=== PATIENT | female | born 1975 | race Caucasian/White ===

== ENCOUNTER → 2020-04-30 10:47 | Outpatient (BNVA) | payer MEDICAID, SELFPAY | PROVIDERS: Visit Provider Family Medicine | DX: N92.6 Irregular menstruation, unspecified (principal); I10 Essential (primary) hypertension; Z90.5 Acquired absence of kidney | CPT/HCPCS: 80053; 80061; 82670; 83001; 84443; 85025 ==

== ENCOUNTER 2020-05-24 19:02 | Outpatient (CLI) | payer MEDICAID, SELFPAY ==
[2020-05-24 19:19] LABS: Basophils # 0.1 10^3/uL (0.0-0.1); Eosinophils # 0.2 10^3/uL (0.0-0.8); Eosinophils % 1.6 %; Hematocrit 41.2 % (37.0-47.0); Hemoglobin 13.6 g/dL (11.5-15.3); Lymphocytes # 2.7 10^3/uL (0.8-4.8); Lymphocytes % 28.7 %; Mean Corpuscular Hemoglobin 31.5 pg (28.0-34.0); Mean Corpuscular Volume 95.4 fL (81-99); Mean Platelet Volume 10.7 fL (7.4-10.4); Monocytes # 0.8 10^3/uL (0.2-0.9); Monocytes % 8.7 %; Neutrophils # 5.59 10^3/uL (1.8-7.7); Neutrophils % 59.7 %; Nucleated Red Blood Cells % 0 %; Platelet Count 247 10^3/cmm (130-400); Red Blood Count 4.32 10^6/uL (4.1-5.3); Red Cell Distribution Width 12.8 % (12.1-15.1); White Blood Count 9.4 10^3/uL (4.0-10.0)
--- NOTE | 2020-05-24 19:21 | XR_ITS ---
WS: [id number] Exam: XR acute abdomen series [id number] Date/Time of Exam: 05/24/2020 7:21 PM Reason For Exam: abdominal pain, n/v, hx of hiatal hernia PA chest radiograph. The lungs are clear and fully expanded. Normal cardiomediastinal structures and bony elements. No bowel obstruction or free air. Signs of prior cholecystectomy. Visualized organ margins are intact . A tampon is noted in the central pelvis. Degenerative changes of the L-spine and hips. XR/XR acute abdomen series [id number] IMPRESSION: 1. No acute cardiopulmonary finding. 2. No acute abdominal process.
[2020-05-24 19:37] LABS: Alanine Aminotransferase 13 U/L (0-33); Albumin Level 4.2 g/dL (3.5-5.2); Alkaline Phosphatase 51 IU/L (35-105); Anion Gap 12.4 (5-19); Aspartate Amino Transferase 14 U/L (0-32); Blood Urea Nitrogen 13 mg/dL (6-20); Calcium 9.1 mg/dL (8.5-10.5); Carbon Dioxide 31 mmol/L (22-29); Chloride 102 mmol/L (98-107); Glucose 76 mg/dL (65-115); Lipase 54 U/L (13-60); Osmolality Calculated 291 mOsm/kg (285-295); Potassium 4.4 mmol/L (3.5-5.1); Sodium 141 mmol/L (136-145); Total Bilirubin 0.3 mg/dL (0.15-1.2); Total Protein 7.2 g/dL (6.6-8.7)
== END 2020-05-24 19:03 | disposition home or self-care (01) ==
PROVIDERS: PCP Family Medicine; Visit Provider Emergency Medicine
DX: R10.9 Unspecified abdominal pain (principal); R11.2 Nausea with vomiting, unspecified; Z87.19 Personal history of other diseases of the digestive system
CPT/HCPCS: 36415; 74022; 80053; 83690; 85025

== ENCOUNTER → 2020-05-25 15:25 | Outpatient (BNVA) | payer MEDICAID, SELFPAY | PROVIDERS: PCP Family Medicine; Visit Provider Obstetrics & Gynecology | DX: Z12.4 Encounter for screening for malignant neoplasm of cervix (principal); N92.0 Excessive and frequent menstruation with regular cycle | CPT/HCPCS: 87338; 88175; 88305 ==

== ENCOUNTER → 2020-06-04 11:10 | Outpatient (BNVA) | payer MEDICAID, SELFPAY | PROVIDERS: PCP Family Medicine; Visit Provider Obstetrics & Gynecology | DX: N83.202 Unspecified ovarian cyst, left side (principal) | CPT/HCPCS: 76830 ==

== ENCOUNTER → 2020-07-06 15:27 | Outpatient (BNVA) | payer MEDICAID, SELFPAY | PROVIDERS: PCP Family Medicine; Visit Provider Emergency Medicine | DX: N39.0 Urinary tract infection, site not specified (principal); R31.9 Hematuria, unspecified; Z87.442 Personal history of urinary calculi | CPT/HCPCS: 81000; 87086 ==

== ENCOUNTER → 2020-07-09 13:47 | Outpatient (BNVA) | payer MEDICAID, SELFPAY | PROVIDERS: PCP Family Medicine; Visit Provider Obstetrics & Gynecology | DX: Z20.828 Contact with and (suspected) exposure to other viral communicable diseases (principal) | CPT/HCPCS: 87635 ==

== ENCOUNTER 2020-07-15 05:57 | Day surgery (SDC) | payer MEDICAID, SELFPAY ==
[2020-07-09 11:39] VITALS: BMI 26.0
--- NOTE | 2020-07-09 11:56 | P.ANESASSM_ITS ---
Pre-Anesthetic Assessment Pre-Anesthetic Assessment: Height/Weight: Height 1.6 m Weight 66.678 kg Preop Diagnosis: irregular bleeding Proposed Procedure: Operation Date: 07/15/20 08:25 Proposed Procedures p Hysteroscopy 09601 53369 N92.0 N88.2(Not Applicable) - Naya Bach MD s Dilation And Curettage (D&C) w/ Myosure(Not Applicable) - Naya Bach MD Familial anesthetic complications: Woke up during pinning and screws of feet (remembers noise, she got nerve block and they put her right back to sleep) Was Beta Anish taken within 24 hours: N/A Was Clonidine taken within 24 hours: N/A Social: Social History: Tobacco and No alcohol Exam: Pre-Anes Outpt Exam: alert, oriented x 3, clear to auscultation bi laterally and regular rate & rhythm Airway: Cervical ROM: WNL MP: 1 Dentition: Chipped (front left) and Othe r (missing) CV/HEM: CV/HEM: HTN : Comments: hx nephrectomy - hydronephrosis d/t stones GI: GI: GERD Musc/skel: Musc/skel: Lower Back Pain and Scoliosis Anesthetic Plan: ASA status: 3 Anesthesia: MAC Other: Patient understands she may have awareness, but she's declining general as well Risk of > 500 ml blood loss (7ml/kg in children): No PFSH Anesthesia PFSH: Medical History Depression Essential (primary) hypertension GERD (gastroesophageal reflux disease) History of kidney stones Scoliosis Surgical History H/O section H/O tubal ligation History of cholecystectomy History of foot surgery History of nephrectomy, right 2002 History of tonsillectomy and adenoidectomy Family History Other CAD (coronary artery disease) Cancer Hypertension Social History (Updated 07/07/20 @ 13:31 by ANSELMO Elliott) Smoking and tobacco status: current every day smoker cigarettes Packs smoked per day: 0.5 Quit status (tobacco): considering quitting Alcohol intake: former Former alcohol use details: YEARS - SOCIAL Substance/Drug Use: never Female Reproductive History: Date of last menstrual period: 07/08/20 Data Anesthesia Cardiac Studies: No Data to Display
[2020-07-09 12:28] LABS: Anion Gap 14.1 (5-19); Blood Urea Nitrogen 11 mg/dL (6-20); Carbon Dioxide 25 mmol/L (22-29); Chloride 101 mmol/L (98-107); Glomerular Filtration Rate 77.2 mL/min (90-130); Glucose 96 mg/dL (65-115); Osmolality Calculated 281 mOsm/kg (285-295); Potassium 4.1 mmol/L (3.5-5.1); Sodium 136 mmol/L (136-145)
[2020-07-15] VITALS (7 sets, daily range): BP systolic 105–142; BP diastolic 76–102; PULSE 68–117; RESP 16–18; TEMP 36.1–37.7; O2SAT 92–98
[2020-07-15] MEDS: sodium chloride 0.9% 1,000 ML 30 ML IV (06:20)
[2020-07-15 06:23] LABS: OR HCG Qualitative Urine Negative (Negative)
--- NOTE | 2020-07-15 06:39 | P.ANESUD_ITS ---
Pre-Anesthetic Update Pre-Anesthetic Assessment: Date of Surgery/Procedure: 07/15/20 Preop Lisa gnosis: menorrhagia Proposed Procedure: Operation Date: 07/15/20 07:00 Proposed Procedures p Hysteroscopy 80572 42183 N92.0 N88.2(Not Applicable) - Naya Bach MD s Dilation And Curettage (D&C) w/ Myosure(Not Applicable) - Naya Bach MD Any changes to Pre-Anesthetic Assessment?: No Last Intake: Intake Last Liquid Date 07/14/20 Last Liquid Time 18:00 Last Solid Date 07/14/20 Last Solid Time 18:00 Labs Last 48hrs: Laboratory Results - last 48 hr 07/15/20 06:22 Urine HCG, Qual Negative Vitals: Temperature 99 F 07/15/20 06:15 Temperature Source Temporal Artery S can 07/15/20 06:15 Pulse Rate 87 07/15/20 06:15 Pulse Rhythm 07/15/20 06:08 Pulse Strength 3+ Normal 07/15/20 06:08 Respiratory Rate 18 07/15/20 06:15 Blood Pressure 142/102 07/15/20 06:15 Blood Pressure Lali n 115 07/15/20 06:15 Pulse Oximetry 95 07/15/20 06:15 Oxygen Delivery Me thod 07/15/20 06:15 Exam: Pre-Anes Outpt Exam: alert, oriented x 3, clear to auscultation bilaterally and regular rate & rhythm Cardiac Studies: No Data to Display
--- NOTE | 2020-07-15 07:05 | W.PM.OPSUD ---
Surgery/Procedure H&P Update DATE OF PROCEDURE: July 15, 2020 DATE H&P PERFORMED: 07/07/20 H&P UPDATE INFORMATION: I have reviewed H&P completed within last 30 days, I have examined patient prior to procedure and No changes to prior documentation PREOP DIAGNOSIS: menorrhagia PLANNED PROCEDURE: Operation Date: 07/15/20 07:00 Proposed Procedures p Hysteroscopy 32532 [id number] N92.0 N88.2(Not Applicable) - Naya Bach MD s Dilation And Curettage (D&C) w/ Myosure(Not Applicable) - Naya Bach MD
--- NOTE | 2020-07-15 07:47 | PM.OP ---
Operative Report Date of procedure: July 15, 2020 Pre-op Diagnosis: menorrhagia Post-op diagnosis: same Post-op Findings: 9 week sized uterus with moderate tissue 200 ml of hysteroscopy deficit Procedure Done: hysteroscopy, dilation and curettage with myosure Specimens removed/disposition: endometrial curettings. Pathology: other Surgeon: Naya Bach Anesthesia: MAC Estimated blood loss (mL): 0 IV fluids (mL): 300 Urine output (mL): 0 Complications: none Findings: 9 week sized uterus with moderate endometrial tissue Condition: stable Disposition: PACU Procedure: The patient was taken to the operating room where monitored anesthesia was administered and to be adequate. She was prepped and draped in the normal sterile fashion in the dorsal lithotomy position in Erik stirrups. A weighted speculum was placed into the vagina and the anterior lip of the cervix grasped with a single-tooth tenaculum. The cervix appeared to be dilated already and I advanced the hysteroscope into the endometrial cavity without any dilation. There was a moderate amount of tissue. The MyoSure device was activated and the tissue was removed. Pictures were taken. Pre and post procedure. All instruments were removed. The patient tolerated the procedure well. Sponge lap and needle counts were correct x3. She was taken to the recovery room in stable condition.
[2020-07-15] MEDS: ondansetron 2 mg/ML SDV 2 mL 4 MG IVP (07:54)
--- NOTE | 2020-07-15 07:58 | P.DS_ITS ---
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 she did well postoperatively and was ready for discharge. Discharge Data Data Completed and Pending: Pending at discharge Category Date Time Status ES surgery / GI i mages Routine Exams 07/15/20 07:25 Taken Pathology: Surgic al [PTH] Routine Pth 07/15/20 07:55 Ordered Labs from last 24 hours 07/15/20 06:22 Urine HCG, Qual Negative Vitals: Last Vital Signs Temp 99.8 F H 07/15/20 07:52 Pulse 117 H 07/15/20 07:52 Resp 18 07/15/20 07:52 BP 124/94 07/15/20 07:52 Pulse Ox 93 07/15/20 07:52 Discharge Plan Discharge Patient Disposition: Home Condition: Stable Prescriptions: Continued potassium chloride [Klor-Con M10] 10 mEq tablet,ER particles/crystals 10 meq PO DAILY Qty: 30 RF: 0 furosemide 20 mg tablet 20 mg PO DAILY Qty: 30 RF: 1 lisinopril 10 mg tablet 10 mg PO DAILY Qty: 30 RF: 0 nicotine 7 mg/24 hr patch 24 hour 1 patch transdermal DAILY Qty: 30 RF: 0 mecobalamin (vitamin B12) 5,000 mcg tablet,disintegrating 5,000 mcg PO DAILY RF: 0 Hair, Skin, Nails with Biotin 7.5-7.5-1,250 mg-unit-mcg tablet,chewable 1 tab PO DAILY RF: 0 Women's Multivitamin Gummies 200 mcg tablet,chewable 1 tab PO DAILY RF: 0 misoprostol [Cytotec] 200 mcg tablet 600 mcg sublingual Q6H Qty: 12 RF: 0 pantoprazole 40 mg tablet,delayed release (DR/EC) 40 mg PO DAILY PRN (Reason: Acid Reflux) RF: 0 Discharge Orders: Discharge Order (Routine); Ordered 07/15/20 Ordered By: Naya Bach Discharge Attestations DYNAMITE PACKING MACHINE FEEDER Time Spent in Discharge Care*: less than 30 min Coding Level of Care Code Acute Health Psychologist for [place] Fwd Diagnoses Menorrhagia N92.0 Irregular bleeding N92.6 Cervical stenosis (uterine cervix) N88.2
[2020-07-15] MEDS: acetaminophen 1,000 MG/100 ML PIGGYBACK 400 MG (08:40)
--- NOTE | 2020-07-15 13:29 | ANE.PACU2 ---
Inpatient post-anesthesia follow up: Airway intact: Yes Vital signs: Temperature 97 F Pulse Rate 68 Respiratory Rate 16 Blood Pressure 132/84 Pulse Oximetry 98 Oxygen Delivery Me thod Room Air Oxygen Flow Rate Fraction of Inspir ed Oxygen Hydration adequate: Yes Nausea and vomiting: No Pain level: 4 Mental status: Baseline
== END 2020-07-15 08:55 | disposition home or self-care (01) ==
PROVIDERS: Anesthesiology; PCP Family Medicine; Visit Provider Obstetrics & Gynecology
PROC: 0UJD8ZZ Inspection of Uterus and Cervix, Via Natural or Artificial Opening Endoscopic (ICD-10-PCS; CPT 58555; principal; 2020-07-15 07:00)
PROC: (CPT 58120; 2020-07-15 07:00)
DX: N92.1 Excessive and frequent menstruation with irregular cycle (principal); N88.2 Stricture and stenosis of cervix uteri; I10 Essential (primary) hypertension; K21.9 Gastro-esophageal reflux disease without esophagitis; F32.9 Major depressive disorder, single episode, unspecified; F17.210 Nicotine dependence, cigarettes, uncomplicated
CPT/HCPCS: 58558; 36415; 80048; 81025; 84703; 88305; 96365; J1100; J2250; J2405; J2704; J2710; J3010; J3490; J7030

== ENCOUNTER 2020-08-06 14:48 | Outpatient (CLI) | payer MEDICAID, SELFPAY ==
--- NOTE | 2020-08-06 15:00 | MM_ITS ---
WS: [id number] SCREENING DIGITAL MAMMOGRAM WITH CAD HISTORY: screening mammogram COMPARISON: None available. Bilateral CC and MLO views submitted. Computer aided detection analyzed. Breast composition: There are scattered areas of fibroglandular density. No suspicious masses, microc alcifications or architectural distortion. MM/[place] [id number] IMPRESSION: BI-RADS: 1-Negative FOLLOW UP: 1 Year Follow-up
== END 2020-08-06 14:49 | disposition home or self-care (01) ==
LOC: RADSHAW 14:50
PROVIDERS: PCP Family Medicine; Visit Provider Family Medicine
DX: Z12.31 Encounter for screening mammogram for malignant neoplasm of breast (principal)
CPT/HCPCS: 77067

== ENCOUNTER → 2020-11-05 13:29 | Outpatient (BNVA) | payer MEDICAID, SELFPAY | PROVIDERS: PCP Family Medicine; Visit Provider Psychiatry & Neurology Psychiatry | DX: F43.12 Post-traumatic stress disorder, chronic (principal); F33.2 Major depressive disorder, recurrent severe without psychotic features; F41.1 Generalized anxiety disorder; F15.21 Other stimulant dependence, in remission; F11.21 Opioid dependence, in remission; F17.210 Nicotine dependence, cigarettes, uncomplicated | CPT/HCPCS: 99204 ==

== ENCOUNTER → 2020-11-11 10:35 | Outpatient (BNVA) | payer MEDICAID, SELFPAY | PROVIDERS: PCP Family Medicine; Visit Provider Psychiatry & Neurology Psychiatry | DX: F33.2 Major depressive disorder, recurrent severe without psychotic features (principal); F43.12 Post-traumatic stress disorder, chronic; F15.21 Other stimulant dependence, in remission; F17.210 Nicotine dependence, cigarettes, uncomplicated; F11.21 Opioid dependence, in remission | CPT/HCPCS: 99214 ==

== ENCOUNTER → 2020-12-03 09:30 | Outpatient (BNVA) | payer MEDICAID, SELFPAY | PROVIDERS: PCP Family Medicine; Visit Provider Obstetrics & Gynecology | DX: N91.2 Amenorrhea, unspecified (principal); N89.8 Other specified noninflammatory disorders of vagina; N92.6 Irregular menstruation, unspecified | CPT/HCPCS: 83001; 83002; 84443; 87070; 87205; 87481; 87512; 87798; 87799 ==

== ENCOUNTER → 2020-12-20 09:54 | Outpatient (BNVA) | payer MEDICAID, SELFPAY | PROVIDERS: PCP Family Medicine; Visit Provider Psychiatry & Neurology Psychiatry | DX: F33.2 Major depressive disorder, recurrent severe without psychotic features (principal); F43.12 Post-traumatic stress disorder, chronic; F15.21 Other stimulant dependence, in remission; F17.210 Nicotine dependence, cigarettes, uncomplicated; F11.21 Opioid dependence, in remission | CPT/HCPCS: 99214 ==

== ENCOUNTER 2021-01-03 16:28 | Emergency (ER) | payer MEDICAID, SELFPAY ==
[2021-01-03 17:00] VITALS: BP 102/57; PULSE 84; RESP 16; TEMP 36.5; O2SAT 97; BMI 24.8
--- NOTE | 2021-01-03 17:11 | ED_ITS ---
HPI - Extremity Problem General: Chief complaint: Extremity Problem,Nontraumatic Stated complaint: pain in left hip down into groin Time Seen by Provider: 01/03/21 17:11 History of Present Illness: HPI Narrative: 45-year-old female comes in today for complaints of left hip pain. Patient reports that for the last 4 nights she has been waking up with discomfort in her left hip. Patient reports pain down into her groin. Patient appears well. Patient appears no acute distress. Patient has a history of GERD, nephrectomy, renal calculi, PTSD, major depressive disorder, methamphetamine use disorder, opioid use disorder. Patient does report a history of frequent steroid use for musculoskeletal pain. Review of Systems General: Reports: 10 or more systems reviewed and unremarkable except in HPI and below Musc: Reports: other (Left hip discomfort.) PFS ED PFSH: Medical History (Updated 01/03/21 @ 17:48 by MAYI Allen) Depression Essential (primary) hypertension GERD (gastroesophageal reflux disease) History of kidney stones Psychiatric care Scoliosis Surgical History H/O section H/O tubal ligation History of cholecystectomy History of foot surgery History of nephrectomy, right 2002 History of tonsillectomy and adenoidectomy Family History Other CAD (coronary artery disease) Cancer Hypertension Social History Smoking and tobacco status: current every day smoker cigarettes Packs smoked per day: 0.5 Years cigarettes smoked: 30 Quit status (tobacco): has tried quititng Number of times tried to quit tobacco: 10 Second hand smoke exposure: Yes Alcohol intake: former Former alcohol use details: YEARS - SOCIAL Desire information about alcohol rehabilitation?: No Desire information about substance/drug rehabilitation?: No Female Reproductive History: Date of last menstrual period: 07/08/20 Physical Exam Const: COMMON NORMALS: no acute distress and patient oriented x3 GENERAL APPEARANCE: cooperative HENMT: COMMON NORMALS: normocephalic and Normal external nose present HEAD & SCALP: normal to inspection and normocephalic NOSE: Normal external nose present MOUTH: Normal oral and palatal mucosa present THROAT: posterior oropharynx normal Eye: GENERAL EYE: appearance normal, both eyes and all related structures Neck/C-Spine: COMMON NORMALS: full ROM Lymph: LYMPHATIC: no lymphadenopathy noted Chest: COMMONS NORMALS: normal inspection of the chest Resp: COMMON NORMALS: normal respiratory effort EFFORT & INSPECTION: Yes able to speak in complete sentences Cardio: COMMON NORMALS: regular rate and regular rhythm RATE: regular rate RHYTHM: regular rhythm GI: COMMON NORMALS: non-tender : COMMON NORMALS: Yes no CVA tenderness BLADDER/KIDNEY EXAM: Yes no CVA tenderness Back/Pelvis: COMMON NORMALS: no CVA tenderness and thoracic and lumbar spine normal to inspection Extremity: NARRATIVE EXTREMITY EXAM: Normal range of motion of left hip. Patient moves all other extremities well. Palpation of the groin elicits no pain. Patient does have some scoliosis of the spine as noted on evaluation. Neuro: COMMON NORMALS: patient oriented x3 and moves all extremities Psych: COMMON NORMALS: mental status grossly normal and cooperative Skin: COMMON NORMALS: no rashes or lesions noted GENERAL SKIN EXAM: no rashes or lesions noted Course Vital Signs: Vital signs: Vital Signs Temperature 97.7 F 01/03/21 17:00 Pulse Rate 79 01/03/21 17:47 Respiratory Rate 16 01/03/21 17:47 Blood Pressure 122/86 01/03/21 17:47 Pulse Oximetry 98 01/03/21 17:47 MDM - Extremity (Nontraumatic) MDM Narrative: Medical decision making narrative: Patient comes in today for complaints of left hip pain. On exam patient has good range of motion of the hip and does not seem to be sensitive to manipulation and movement. No swelling or redness is noted to the area. Differential diagnosis includes tendinitis, bursitis, degenerative joint disease. X-rays noted no acute abnormality. Recommended patient use diclofenac 75 mg twice a day for the next 7 days. Also recommended ice or heat to the area for further comfort relief. Patient should follow-up with primary care otherwise for further evaluation and treatment. Patient reported understanding. Discharge Plan Discharge Patient Disposition: Home Clinical Impression: Hip pain, left Condition: Stable Prescriptions: New diclofenac sodium 75 mg tablet,delayed release (DR/EC) 75 mg PO BID Qty: 14 RF: 0 No Action mecobalamin (vitamin B12) 5,000 mcg tablet,disintegrating 5,000 mcg PO DAILY RF: 0 Hair, Skin, Nails with Biotin 7.5-7.5-1,250 mg-unit-mcg tablet,chewable 1 tab PO DAILY RF: 0 doxepin 50 mg capsule 50 mg PO .HS Qty: 30 RF: 1 atomoxetine 40 mg capsule 40 mg PO QAM 30 Days Qty: 30 RF: 3 azithromycin 250 mg tablet See Rx Instructions PO .COMPLEX Qty: 6 RF: 0 neomycin-polymyxin B-dexameth [Maxitrol] 3.5mg/mL-10,000 unit/mL-0.1 % drops,suspension 2 drp ophthalmic (eye) QID 7 Days Qty: 5 RF: 0 Tylenol Extra Strength 500 mg powder in packet 500 mg PO Q6H PRNRF: 0 lisinopril 10 mg tablet 10 mg PO DAILY 30 Days Qty: 30 RF: 2 orphenadrine citrate 100 mg tablet extended release 100 mg PO BID PRN (Reason: MUSCLE SPASMS) Qty: 20 RF: 0 doxycycline hyclate 100 mg tablet 100 mg PO BID Qty: 28 RF: 0 furosemide 20 mg tablet 20 mg PO DAILY Qty: 30 RF: 0 Discharge Orders: Discharge ED (Routine); Ordered 01/03/21 Ordered By: Marvin Wheeler Referrals: Ramya Bell DO [Primary Care Provider] - Discharge Diet: Usual diet Discharge Activity: Increase activity as tolerated Patient Instructions: Musculoskeletal Pain (ED), Opioid Safety Activity Restrictions/Additional Instructions: Activity as tolerated. I suspect you have some inflammation in the joint that may be secondary to a strain on the muscle or tendon. Sometimes this is aggravated by recent activity changes or abnormal position. Most often the inflammation and pain will resolve within 7 to 10 days. Monitor for other changes in the surrounding tissues such as increased redness and swelling. If you have any of the symptoms I recommend you be reevaluated. Use Tylenol for further pain control. Return to the ER for new concerns. 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
--- NOTE | 2021-01-03 17:19 | XRR_ITS ---
PROCEDURE INFORMATION: Exam: XR Left Hip Exam date and time: 01/03/2021 5:19 PM Age: 45 years old Clinical indication: Hip pain; Left hip TECHNIQUE: Imaging protocol: XR Left hip. Views: 2 or 3 views hip with pelvis when performed. COMPARISON: CR XR acute abdomen series [id number] 05/24/2020 7:25 PM FINDINGS: Bones/joints: Unremarkable. No acute fracture. Soft tissues: Unremarkable. XR/XR hip LT 2-3V wo/w pel* [id number] IMPRESSION: No acute findings. Radiation Dose CTDIVOL = (mGy): DLP = (mGy-cm)
[2021-01-03 17:47] VITALS: BP 122/86; PULSE 79; RESP 16; O2SAT 98
== END 2021-01-03 17:54 | disposition home or self-care (01) ==
PROVIDERS: Emergency Provider Nurse Practitioner Family; PCP Family Medicine
DX: M25.552 Pain in left hip (principal); I10 Essential (primary) hypertension; F17.210 Nicotine dependence, cigarettes, uncomplicated
CPT/HCPCS: 73502; 99281

== ENCOUNTER → 2021-02-08 10:45 | Outpatient (BNVA) | payer MEDICAID, SELFPAY | PROVIDERS: PCP Family Medicine; Visit Provider Psychiatry & Neurology Psychiatry | DX: F33.2 Major depressive disorder, recurrent severe without psychotic features (principal); F43.12 Post-traumatic stress disorder, chronic; F15.21 Other stimulant dependence, in remission; F17.210 Nicotine dependence, cigarettes, uncomplicated; F11.21 Opioid dependence, in remission | CPT/HCPCS: 99214 ==

== ENCOUNTER → 2021-03-21 13:51 | Outpatient (BNVA) | payer MEDICAID, SELFPAY | PROVIDERS: PCP Family Medicine; Visit Provider Family Medicine | DX: I10 Essential (primary) hypertension (principal) | CPT/HCPCS: 80053; 80061; 82043; 85025 ==

== ENCOUNTER 2021-03-31 10:47 | Emergency (ER) | payer MEDICAID, SELFPAY ==
[2021-03-31 11:05] VITALS: PULSE 90; RESP 16; TEMP 37.1; O2SAT 98
--- NOTE | 2021-03-31 11:20 | W.ED.NAVMDI ---
HPI - Nausea/Vomiting/Diarrhea General: Chief complaint: Nausea/Vomiting/Diarrhea Stated complaint: N/V/D Time Seen by Provider: 03/31/21 11:13 Source: patient Mode of arrival: ambulatory Limitations: no limitations History of Present Illness: HPI Narrative: 45-year-old female presents to the ER today for opioid withdrawal. Patient reports she has a strong history of drug use. She reports she was once addicted to methamphetamine and stopped that. She reports then she became addicted to opioids and stopped them however relapsed recently and has been using regularly. Patient reports she thought she could stop on her own but has found that she has needed to use every couple of days to avoid the symptoms. Patient reports currently her symptoms are nausea, vomiting and diarrhea. Patient reports significant anxiety also with this withdrawal. Patient does not want to go to a treatment facility but would like to go to someone who can prescribe medications to her to help with opioid dependence. Patient denies any SI/HI. MD elicited complaint: nausea, vomiting and diarrhea Onset (ago): week(s) Associated nausea: Yes Radiation: does not radiate Pain consistency: intermittent Severity: moderate Exacerbating factors: other (drug use/withdrawal) Context: other Associated symtoms: Reports anxiety and nausea; Denies chest pain, headache(s) or palpitations Review of Systems General: Reports: 10 or more systems reviewed and unremarkable except in HPI and below Const: Denies: fever(s), chills or body aches ENMT: Denies: throat pain, nasal discharge or nasal congestion Card: Denies: chest pain or palpitations Resp: Denies: dyspnea, productive cough or wheezing GI: Reports: abdominal pain, nausea, vomiting and diarrhea; Denies: constipation : Denies: flank pain Musc: Denies: neck pain, back pain or extremity pain Skin/Breast: Denies: rash Neuro: Denies: headache(s) Psych: Reports: anxiety and depression PFS ED PFSH: Medical History Depression Essential (primary) hypertension GERD (gastroesophageal reflux disease) History of kidney stones Psychiatric care Scoliosis Surgical History H/O section H/O tubal ligation History of cholecystectomy History of foot surgery History of nephrectomy, right 2002 History of tonsillectomy and adenoidectomy Family History Other CAD (coronary artery disease) Cancer Hypertension Social History Smoking and tobacco status: current every day smoker cigarettes Packs smoked per day: 0.5 Years cigarettes smoked: 30 Quit status (tobacco): has tried quititng Number of times tried to quit tobacco: 10 Second hand smoke exposure: Yes Alcohol intake: former Former alcohol use details: YEARS - SOCIAL Desire information about alcohol rehabilitation?: No Desire information about substance/drug rehabilitation?: No Female Reproductive History: Date of last menstrual period: 07/08/20 Physical Exam Const: COMMON NORMALS: no acute distress, average body habitus, patient oriented x3 and no limitations GENERAL APPEARANCE: cooperative, comfortable and anxious HENMT: COMMON NORMALS: normocephalic, hearing grossly normal bilaterally and Normal external nose present HEAD & SCALP: normocephalic NOSE: Normal external nose present Eye: COMMON NORMALS: conjunctivae normal CONJUNCTIVA: Yes conjunctivae normal Neck/C-Spine: COMMON NORMALS: full ROM Lymph: LYMPHATIC: no lymphadenopathy noted Resp: COMMON NORMALS: normal respiratory effort, No retractions and clear to auscultation bilaterally EFFORT & INSPECTION: Yes able to speak in complete sentences AUSCULTATION: clear to auscultation bilaterally, no crackles, no rales, no rhonchi and no wheezes Cardio: COMMON NORMALS: regular rate, regular rhythm, S1 normal heart sound present, S2 normal heart sound present and No murmurs present (Cardio) RATE: regular rate RHYTHM: regular rhythm HEART SOUNDS: S1 normal heart sound present and S2 normal heart sound present GI: COMMON NORMALS: Normal to inspection, nondistended, normoactive bowel sounds present, Soft to palpation and No hepatosplenomegaly present PALPATION: Yes Soft to palpation, Yes Tenderness to palpation present (GI) (minimal diffuse), No Guarding due to palpation present (GI) and Yes No hepatosplenomegaly present Back/Pelvis: THORACIC SPINE/UPPER BACK: Yes normal to inspection LUMBAR SPINE/LOWER BACK: Yes normal to inspection Extremity: COMMON NORMALS: normal to inspection and full ROM Neuro: COMMON NORMALS: patient oriented x3, moves all extremities and gait normal Psych: MOOD & AFFECT: Yes anxious Skin: COMMON NORMALS: no rashes or lesions noted GENERAL SKIN EXAM: no rashes or lesions noted Course ED course: Patient presents to the ER today for opioid withdrawal. We will do basic lab work at this time to rule out any other cause of patient's nausea, vomiting, diarrhea. Likely this is due to withdrawal. Vital Signs: Vital signs: Vital Signs Temperature 98.7 F 03/31/21 11:05 Pulse Rate 90 03/31/21 12:10 Respiratory Rate 16 03/31/21 12:10 Blood Pressure 134/68 03/31/21 11:32 Pulse Oximetry 98 03/31/21 12:10 MDM - Nausea/Vomiting/Diarrhea MDM Narrative: Medical decision making narrative: 45-year-old female presents to the ER today for opioid withdrawal. Patient is a known opioid addict and has quit in the past however relapsed recently. Patient reports diarrhea, nausea, vomiting if she does not use about every 2 days. Patient would like help quitting but does not want a treatment center. She would like to try medications as she is confident she can do it that way. Labs were normal in the ER today. Discussed with patient we do not do that sort of treatment from the ER however we can get her referred to someone who might. We will do clonidine for withdrawal symptoms at this time. Return to the ER with any new or worsening symptoms. Patient verbalized understanding and is in agreement with this treatment plan. Lab Data: Labs: Lab Results 03/31/21 03/31/21 03/31/21 11:29 11:29 11:29 WBC 9.9 10^3/uL 10^3/ uL (4.0-10.0) RBC 4.45 10^6/uL 10^6 /uL (4.1-5.3) Hgb 14.2 g/dL g/dL (11.5-15.3) Hct 42.0 % % (37.0-47.0) MCV 94.4 fl fl (81-99) MCH 31.9 pg pg (28.0-34.0) MCHC 33.8 g/dL g/dL (30.0-36.0) RDW 13.2 % % (12.1-15.1) Plt Count 297 10^3/cmm 10^3 /cmm (130-400) MPV 10.1 fL fL (7.4-10.4) Neut % (Auto) 67.1 % % Lymph % (Auto) 22.3 % % Reagan % (Auto) 8.4 % % Eos % (Auto) 0.8 % % Baso % (Auto) 0.9 % % Neut # (Auto) 6.67 10^3/uL 10^3 /uL (1.8-7.7) Lymph # (Auto) 2.2 10^3/uL 10^3/ uL (0.8-4.8) Reagan # (Auto) 0.8 10^3/uL 10^3/ uL (0.2-0.9) Eos # (Auto) 0.1 10^3/uL 10^3/ uL (0.0-0.8) Baso # (Auto) 0.1 10^3/uL 10^3/ uL (0.0-0.1) Nucleated RBC % (a uto) 0 % % Nucleated RBCs # 0.0 /100WBC /100W BC Sodium 137 mmol/L mmol/L (136-145) Chloride 101 mmol/L mmol/L (98-107) Carbon Dioxide 25 mmol/L mmol/L (22-29) BUN 13 mg/dL mg/dL (6-20) Creatinine 0.9 mg/dL mg/dL (0.5-0.9) Glucose 68 mg/dL mg/dL (65-115) Calcium 8.5 mg/dL mg/dL (8.5-10.5) Total Bilirubin 0.2 mg/dL mg/dL (0.15-1.2) AST 14 U/L U/L (0-32) ALT 10 U/L U/L (0-33) Alkaline Phosphata se 66 IU/L IU/L (35-105) Total Protein 7.2 g/dL g/dL (6.6-8.7) Albumin 4.3 g/dL g/dL (3.5-5.2) Globulin 2.9 g/dL g/dL (1.3-4.6) Lipase 46 U/L U/L (13-60) Urine Color Straw (Yellow) Urine Appearance Clear (CLEAR) Urine pH 7 (5-7) Ur Specific Gravit y 1.005 (1.005-1.030) Urine Protein Neg (Negative) Urine Glucose (UA) Norm (Normal) Urine Ketones Negative (Negative) Urine Blood Neg (Negative) Urine Nitrate Negative (Negative) Urine Bilirubin Neg (Negative) Urine Urobilinogen Norm mg/dL mg/dL (Negative) Ur Leukocyte Qian ase Negative (Negative) Discharge Plan Discharge Patient Disposition: Home Clinical Impression: Opioid dependence with withdrawal Diarrhea Qualifiers: Diarrhea type: unspecified type Qualified Code(s): R19.7 - Diarrhea, unspecified Condition: Stable Prescriptions: New clonidine HCl 0.1 mg tablet 0.1 mg PO Q4H MDD 1.2 mg 10 Days Qty: 30 RF: 0 No Action mecobalamin (vitamin B12) 5,000 mcg tablet,disintegrating 5,000 mcg PO DAILY RF: 0 Hair, Skin, Nails with Biotin 7.5-7.5-1,250 mg-unit-mcg tablet,chewable 1 tab PO DAILY RF: 0 doxepin 50 mg capsule 50 mg PO .HS Qty: 30 RF: 1 furosemide 20 mg tablet See Rx Instructions .ROUTE .COMPLEX Qty: 90 RF: 1 lisinopril 10 mg tablet See Rx Instructions .ROUTE .COMPLEX Qty: 90 RF: 1 Tylenol Extra Strength 500 mg powder in packet 500 mg PO Q6H PRNRF: 0 diclofenac sodium 75 mg tablet,delayed release (DR/EC) 75 mg PO BID RF: 0 orphenadrine citrate 100 mg tablet extended release 100 mg PO BID PRN (Reason: MUSCLE SPASMS) RF: 0 atomoxetine 60 mg capsule 60 mg PO QAM 30 Days Qty: 30 RF: 3 buspirone 10 mg tablet 10 mg PO BID PRN (Reason: anxiety) 30 Days Qty: 60 RF: 3 Discharge Orders: Discharge ED (Routine); Ordered 03/31/21 Ordered By: Graciela Ferguson Referrals: Ramya Bell DO [Primary Care Provider] - Discharge Diet: Advance as tolerated Discharge Activity: Resume usual activity Patient Instructions: Opioid Safety Activity Restrictions/Additional Instructions: Take clonidine as prescribed. You should hear from the hospital within the next week about a referral to a treatment provider. Drug issues is discouraged. Drink plenty of fluids and eat a healthy diet. Return to the ER with any new or worsening symptoms. Coding Level of Care Code ED [employer]st for [employer] Exam Comprehensive
[2021-03-31 11:32] VITALS: BP 134/68; PULSE 90; RESP 16; O2SAT 98
[2021-03-31 11:35] LABS: Basophils # 0.1 10^3/uL (0.0-0.1); Basophils % 0.9 %; Eosinophils # 0.1 10^3/uL (0.0-0.8); Eosinophils % 0.8 %; Hemoglobin 14.2 g/dL (11.5-15.3); Lymphocytes # 2.2 10^3/uL (0.8-4.8); Lymphocytes % 22.3 %; Mean Corpuscular HGB Conc 33.8 g/dL (30.0-36.0); Mean Corpuscular Hemoglobin 31.9 pg (28.0-34.0); Mean Corpuscular Volume 94.4 fl (81-99); Mean Platelet Volume 10.1 fL (7.4-10.4); Monocytes # 0.8 10^3/uL (0.2-0.9); Monocytes % 8.4 %; Neutrophils # 6.67 10^3/uL (1.8-7.7); Neutrophils % 67.1 %; Nucleated Red Blood Cells % 0 %; Platelet Count 297 10^3/cmm (130-400); Red Blood Count 4.45 10^6/uL (4.1-5.3); Red Cell Distribution Width 13.2 % (12.1-15.1); White Blood Count 9.9 10^3/uL (4.0-10.0)
[2021-03-31 11:38] LABS: Add Urine Microscopic? NO; Charge for UA Resulting for Rev
[2021-03-31 11:58] LABS: Alanine Aminotransferase 10 U/L (0-33); Albumin Level 4.3 g/dL (3.5-5.2); Alkaline Phosphatase 66 IU/L (35-105); Aspartate Amino Transferase 14 U/L (0-32); Blood Urea Nitrogen 13 mg/dL (6-20); Calcium 8.5 mg/dL (8.5-10.5); Carbon Dioxide 25 mmol/L (22-29); Chloride 101 mmol/L (98-107); Globulin 2.9 g/dL (1.3-4.6); Glomerular Filtration Rate 67.4 mL/min (90-130); Glucose 68 mg/dL (65-115); Lipase 46 U/L (13-60); Osmolality Calculated 282 mOsm/kg (285-295); Sodium 137 mmol/L (136-145); Total Bilirubin 0.2 mg/dL (0.15-1.2); Total Protein 7.2 g/dL (6.6-8.7)
[2021-03-31 12:06] LABS: Urine Appearance Clear (CLEAR); Urine Color Straw (Yellow); pH Urine 7 (5-7)
[2021-03-31 12:07] LABS: Bilirubin Urine Neg (Negative); Blood Urine Neg (Negative); Glucose Urine UA Norm (Normal); Ketones Urine Negative (Negative); Leukocyte Esterase Urine Negative (Negative); Nitrate Urine Negative (Negative); Protein Urine Neg (Negative); Specific Gravity, Urine 1.005 (1.005-1.030); Urobilinogen Urine Norm (Negative)
[2021-03-31 12:10] VITALS: PULSE 90; RESP 16; O2SAT 98
[2021-03-31 12:19] LABS: Anion Gap 15.2 (5-19); Potassium 4.2 mmol/L (3.5-5.1)
--- NOTE | 2021-04-06 14:17 | DCPLANNER ---
internal control manager had message to speak with patient about treatment. internal control manager called phone number [phone], unable to speak with patient at this time.
== END 2021-03-31 12:10 | disposition home or self-care (01) ==
PROVIDERS: Emergency Provider Physician Assistant; PCP Family Medicine
DX: F11.23 Opioid dependence with withdrawal (principal); R19.7 Diarrhea, unspecified; I10 Essential (primary) hypertension; F17.210 Nicotine dependence, cigarettes, uncomplicated
CPT/HCPCS: 80053; 81003; 83690; 85025; 99283